=== PATIENT | female | born 1960 | race Caucasian/White ===

== ENCOUNTER 2017-04-10 19:42 | Emergency (ER) | payer OTHER ==
[~2017-04-10] VITALS: Ht 170.2 cm; Wt 109.3 kg
[~2017-04-10 19:42] MED LIST: AMOX-260 PO; OMEP1CAP19 PO; RANI300T3 PO; TRAM50TA PO; dayquil
[2017-04-10 20:37] VITALS: BP 128/85
[2017-04-10] MEDS ORDERED: TETANUS AND DIPHTHERIA TOX/PF 0.5 ML VIAL. VAX IM ONE (20:45)
[2017-04-10] MEDS ORDERED: DIPHTH,PERTUSS(ACELL),TET TOX 0.5 ML DISP.SYRIN. VAX IM ONE (21:00)
--- NOTE | 2017-04-10 21:42 | ED.ADGEN ---
Past History Past Medical History: Other Past Surgical History: Appendectomy, Cholecystectomy Smoking: Cigarettes Alcohol Use: None Drug Use: None Adult General Chief Complaint Chief Complaint Bilateral knee injury HPI HPI Patient is a 56-year-old female who presents with bilateral knee pain. Patient fell from standing and slipped on sticky floor landing on both knees. Patient has bruising, swelling tenderness to right patellar region. Reports right leg pain with weightbearing. Denies other injury. Review of Systems Review of Systems Review symptoms as per history of present illness. Current Medications Current Medications Current Medications Medications (Trade) Dose Ordered Sig/Babita Start Time Stop Time Status Last Admin Dose Admin Diphtheria/ Tetanus/Acell Pertussis (Boostrix) 0.5 ml ONCE ONCE 04/10/17 21:00 04/10/17 21:03 DC 04/10/17 21:00 0.5 ML Tetanus/ Diphtheria Toxoids Adsorbed (Tenivac Vial) 0.5 ml ONCE ONCE 04/10/17 20:45 04/10/17 20:46 Cancel Allergies Allergies Allergies Coded Allergies Type Severity Reaction Last Updated Verified morphine Allergy Unknown 04/10/17 Yes Physical Exam Physical Exam Constitutional: Well developed, well nourished, no acute distress, non-toxic appearance. HENT: Normocephalic, atraumatic, bilateral external ears normal, oropharynx moist, no oral exudates, nose normal. Extremities: Right lower extremity, prepatellar abrasion, swelling, no gross deformity, pain on range of motion. Left lower extremity, left prepatellar tenderness, no appreciable swelling bruising or deformity. Minimal pain on range of motion. Bilateral lower extremity pulses are symmetric. Neurologic: Alert and oriented X 3, normal motor function, normal sensory function, no focal deficits noted. Psychologic: Affect normal, judgement normal, mood normal. Current Patient Data Vital Signs Vital Signs Date Time Temp Pulse Resp B/P (MAP) Pulse Ox O2 Delivery O2 Flow Rate FiO2 04/10/17 19:45 97.6 74 18 98 Room Air EKG EKG [] Radiology/Procedures Radiology/Procedures [Bilateral knees with sunrise views: No obvious displaced fractures on preliminary read] Course & Med Decision Making Course & Med Decision Making Pertinent Labs and Imaging studies reviewed. (See chart for details) [Patient pain addressed. Tetanus updated. Patient placed in right knee immobilizer instructed to be limited weightbearing until PCP/work comp follow- up.] Final Impression Final Impression [1. Bilateral knee contusions 2. Right knee abrasion] Problems: Dragon Disclaimer Dragon Disclaimer This electronic medical record was generated, in whole or in part, using a voice recognition dictation system. LAURIE CORTEZ DO April 10, 2017 21:42
--- NOTE | 2017-04-11 07:52 | RAD ---
EXAM: Bilateral knees, 3 views. HISTORY: Fall. COMPARISON: 09/21/2013. FINDINGS: Frontal, lateral, oblique and sunrise views of both knees are obtained. There is no fracture, dislocation or subluxation. No joint effusion is seen. There is slight lateral lateral patellofemoral compartment joint space narrowing with minimal lateral patellar tilting. There is no subluxation. IMPRESSION: No acute osseous finding.
== END 2017-04-10 21:20 | disposition home or self-care (01) ==
LOC: ER 19:42
DX: S80.02XA Contusion of left knee, initial encounter (principal); S80.01XA Contusion of right knee, initial encounter; F17.210 Nicotine dependence, cigarettes, uncomplicated; Z88.5 Allergy status to narcotic agent; W01.0XXA Fall on same level from slipping, tripping and stumbling without subsequent striking against object, initial encounter; Y93.89 Activity, other specified; Y99.8 Other external cause status; Y92.89 Other specified places as the place of occurrence of the external cause
CPT/HCPCS: 29505; 73564; 90471; 90715; 99284-25

== ENCOUNTER → 2017-07-20 | Outpatient (CLI) | payer OTHER ==
--- NOTE | 2017-07-23 14:32 | RAD ---
DATE: 07/23/2017 EXAM: MAMMO NIESHA SCREENING BILATERAL HISTORY: Asymptomatic screening mammogram COMPARISON: Prior mammogram from 05/31/2012 This study was interpreted with the benefit of Computerized Aided Detection (CAD). The breast parenchyma shows scattered fibroglandular densities. Breast parenchyma level B. FINDINGS: Bilateral CC and MLO views were performed. Bilateral breast tomosynthesis in the CC and MLO views were performed. Right breast: No suspicious microcalcifications, masses or areas of architectural distortion. Left breast: There is a mass in the outer slightly lower quadrant of the left breast at central depth for which spot compression CC and MLO views as well as ultrasound are recommended. No suspicious microcalcifications or areas of architectural distortion. Findings are stable from the prior mammogram. IMPRESSION: 1. Incomplete left mammogram. Patient will need to be called back for additional views to include spot compression CC normal views as well as ultrasound. 2. Negative right mammogram. BI-RADS CATEGORY: 0 INCOMPLETE: NEEDS ADDITIONAL IMAGING EVALUATION AND/OR PRIOR MAMMOGRAMS FOR COMPARISON. RECOMMENDED FOLLOW-UP: ADD ADDITIONAL IMAGING PQRS compliance statement: Mammography is a sensitive method for finding small breast cancers, but it does not detect them all and is not a substitute for careful clinical examination. A negative mammogram does not negate a clinically suspicious finding and should not result in delay in biopsying a clinically suspicious abnormality. "Our facility is accredited by the [employer] Mammography [employer]."
== END | disposition home or self-care (01) ==
LOC: MAMMO 10:13
PROVIDERS: ATTEND Obstetrics & Gynecology
DX: Z12.31 Encounter for screening mammogram for malignant neoplasm of breast (principal)
CPT/HCPCS: 77063; G0202; 77067

== ENCOUNTER → 2017-08-04 | Outpatient (CLI) | payer OTHER ==
--- NOTE | 2017-08-04 11:27 | RAD ---
DATE: 08/04/2017 EXAM: DIGITAL DIAGNOSTIC LT, BREAST LEFT HISTORY: Possible abnormality seen on screening COMPARISON: Screening examination 16 days earlier FINDINGS: Breast Density: SCATTERED The breast parenchyma shows scattered fibroglandular densities. Breast parenchyma level B. Additional views obtained include rolled cc views medially and laterally as well as a coned compression MLO views and cc views as well as an ML view. On the rolled views no definite abnormality is seen. On the MLO view a nodular density is seen just below the plane of the nipple similar to the screening exam. On the coned compression views a possible small nodule, having benign features on mammography, is seen laterally in the breast. Targeted ultrasound of the left breast was performed. The examination was performed from the 3 to 6:00 position. At the 4:00 position of the breast, approximately 5 cm from the nipple, is a hypoechoic 4 mm mass having very benign features on ultrasound. It may account for the density seen on mammography. IMPRESSION: Probable benign findings. Follow-up mammography of the left breast is suggested in 6 months to further document stability BI-RADS CATEGORY: 3 PROBABLE BENIGN FINDING(S-SHORT INTERVAL FOLLOW-UP SUGGESTED RECOMMENDED FOLLOW-UP: 6M 6 MONTH FOLLOW-UP PQRS compliance statement: Patient information was entered into a reminder system with a target due date 02/11/2018 for the next mammogram. Mammography is a sensitive method for finding small breast cancers, but it does not detect them all and is not a substitute for careful clinical examination. A negative mammogram does not negate a clinically suspicious finding and should not result in delay in biopsying a clinically suspicious abnormality. "Our facility is accredited by the [employer] Mammography Program."
== END | disposition home or self-care (01) ==
LOC: MAMMO 09:45
PROVIDERS: ATTEND Internal Medicine
DX: R92.8 Other abnormal and inconclusive findings on diagnostic imaging of breast (principal)
CPT/HCPCS: 76641; G0206; 77065

== ENCOUNTER → 2018-02-15 | Outpatient (CLI) | payer OTHER ==
--- NOTE | 2018-02-15 11:31 | RAD ---
DATE: 02/15/2018 EXAM: MAMMO NIESHA KANDACEG LT, BREAST LEFT HISTORY: 6 month follow-up COMPARISON: 08/04/2017, 07/20/2017, 05/31/2012 This study was interpreted with the benefit of Computerized Aided Detection (CAD). The breast parenchyma shows scattered fibroglandular densities. Breast parenchyma level B. FINDINGS: 2-D and 3-D tomosynthesis imaging was performed in CC and MLO projections. No new or enlarging breast densities are seen. The questionable tiny opacity described on the previous studies is no longer visible. Minimal benign type calcifications are present. No suspicious microcalcifications have developed. Left breast ultrasound, 02/15/2018: A targeted ultrasound exam of the left breast was performed at the 4:00 location where a small nodule was noted on 08/04/2017. The small hypoechoic nodule currently measures 2.2 x 2.4 x 1.0 mm compared to measurements of 2.5 x 3.6 x 1.5 mm on the previous study. Its interval decrease in size suggests that this is a benign complicated cyst. No other abnormality is seen in this region. IMPRESSION: 1. There is no mammographic evidence of malignancy in the left breast. Follow-up bilateral mammography in 6 months is suggested.. 2. A targeted ultrasound exam of the left breast shows that the tiny nodule seen on the previous study has decreased in size compatible with a benign etiology. BI-RADS CATEGORY: 2 BENIGN FINDING(S) RECOMMENDED FOLLOW-UP: 6M 6 MONTH FOLLOW-UP PQRS compliance statement: Patient information was entered into a reminder system with a target due date for the next mammogram. Mammography is a sensitive method for finding small breast cancers, but it does not detect them all and is not a substitute for careful clinical examination. A negative mammogram does not negate a clinically suspicious finding and should not result in delay in biopsying a clinically suspicious abnormality. "Our facility is accredited by the [employer] Mammography Program."
== END | disposition home or self-care (01) ==
LOC: MAMMO 10:04
PROVIDERS: ATTEND Internal Medicine
DX: N63.21 Unspecified lump in the left breast, upper outer quadrant (principal); K21.9 Gastro-esophageal reflux disease without esophagitis; Z87.891 Personal history of nicotine dependence; Z90.49 Acquired absence of other specified parts of digestive tract
CPT/HCPCS: 76641; 77065; G0279; 77061

== ENCOUNTER 2018-09-20 15:55 | Emergency (ER) | payer OTHER ==
[~2018-09-20] VITALS: Ht 170.2 cm; Wt 102.1 kg
[2018-09-20 16:15] VITALS: BP 138/75
[2018-09-20] MEDS ORDERED: HYDROcodone/APAP 5/325MG 1 TAB TABLET PO ONE (16:45)
[2018-09-20] MEDS ORDERED: CYCLOBENZAPRINE 10 MG TABLET. PO ONE (16:45)
--- NOTE | 2018-09-20 17:01 | RAD ---
CT LUMBAR SPINE WO CONTRAST, CT THORACIC SPINE WO CONTRAST dated 09/20/2018 4:31 PM Indication: Pain.muscle strain. Comparison: No comparison is available. Technique: Contiguous axial imaging of the thoracic and lumbar spine performed with thin cut coronal and sagittal reconstruction. One or more of the following individualized dose reduction techniques were utilized for this examination: 1. Automated exposure control 2. Adjustment of the mA and/or kV according to patient size 3. Use of iterative reconstruction technique Findings: Sagittal alignment is anatomic. Vertebral body heights are maintained. Posterior elements are intact. No evidence of fracture. Mild endplate hypertrophic changes throughout. There is multilevel facet arthropathy with multilevel disc space narrowing. No apparent focal disc herniation. There is mild broad-based posterior bulging at L4-L5 and L5-S1. No significant central canal or foraminal compromise. There is mild emphysema. Small subpleural nodule in the right lower lobe on image 81 measures 4 mm, nonspecific. Imaged portions of the retroperitoneum unremarkable. IMPRESSION: 1. No evidence of fracture or malalignment. 2. Mild multilevel spondylosis. 3. Small noncalcified pulmonary nodule in the right lower lobe, nonspecific. 4. Mild emphysema. Electronically signed by: Carlos Swift MD (09/20/2018 4:57 PM) [facility]
[2018-09-20] MEDS ORDERED: CYCL-331 PO (17:29)
[2018-09-20] MEDS ORDERED: TRAM-48 PO (17:29)
[2018-09-20] MEDS ORDERED: IBUP800T19 PO (17:29)
--- NOTE | 2018-09-20 17:30 | PHYS DOC ---
Past History Past Medical History: Cancer Past Surgical History: Cancer Surgery Smoking: Cigarettes Alcohol Use: None Drug Use: None Adult General Chief Complaint Chief Complaint: BACK PAIN OR INJURY HPI HPI Patient is a 57 year old female who presents with complaining of mid back pain for the last 3 days as a constant pain with no radiation. Patient denies focal neuro deficit, urine and bowel incontinence, fever and chills, history of injury. Patient states she took [id number] medication without improvement of her pain. Patient stated she had history of cervical cancer more than 10 years ago and had stressful condition going on recently. Review of Systems Review of Systems Constitutional: Denies fever or chills [] Eyes: Denies change in visual acuity, redness, or eye pain [] HENT: Denies nasal congestion or sore throat [] Respiratory: Denies cough or shortness of breath [] Cardiovascular: No additional information not addressed in HPI [] GI: Denies abdominal pain, nausea, vomiting, bloody stools or diarrhea [] : Denies dysuria or hematuria [] Musculoskeletal: Reports back pain Integument: Denies rash or skin lesions [] Neurologic: Denies headache, focal weakness or sensory changes [] Endocrine: Denies polyuria or polydipsia [] All other systems were reviewed and found to be within normal limits, except as documented in this note. Current Medications Current Medications Current Medications Medications (Trade) Dose Ordered Sig/Babita Start Time Stop Time Status Last Admin Dose Admin Acetaminophen/ Hydrocodone Bitart (Lortab 5/325) 1 tab 1X ONCE 09/20/18 16:45 09/20/18 16:46 DC 09/20/18 16:38 1 TAB Cyclobenzaprine HCl (Flexeril) 10 mg 1X ONCE 09/20/18 16:45 09/20/18 16:46 DC 09/20/18 16:38 10 MG Allergies Allergies Allergies Coded Allergies Type Severity Reaction Last Updated Verified morphine Allergy Unknown 04/10/17 Yes Physical Exam Physical Exam Constitutional: Well developed, well nourished, mild distress, non-toxic appearance. [] HENT: Normocephalic, atraumatic Eyes: PERRLA, EOMI, conjunctiva normal, no discharge. [] Neck: Normal range of motion, no tenderness, supple, no stridor. [] Cardiovascular:Heart rate regular rhythm, no murmur [] Lungs & Thorax: Bilateral breath sounds clear to auscultation [] Abdomen: Bowel sounds normal, soft, no tenderness, no masses, no pulsatile masses. [] Skin: Warm, dry, no erythema, no rash. [] Back: No midline tenderness, no deformities, painful range of motion, no CVA tenderness. [] Extremities: No tenderness, no cyanosis, no clubbing, ROM intact, no edema. [] Neurologic: Alert and oriented X 3, normal motor function, normal sensory function, no focal deficits noted. [] Psychologic: Affect anxious, judgement normal, mood normal. [] Current Patient Data Vital Signs Vital Signs Date Time Temp Pulse Resp B/P (MAP) Pulse Ox O2 Delivery O2 Flow Rate FiO2 09/20/18 16:38 18 09/20/18 16:15 98.7 84 95 Room Air EKG EKG [] Radiology/Procedures Radiology/Procedures [][address] [address] IMAGING REPORT Signed PATIENT: NEGRO KEY ACCOUNT: [id number] : 1960 LOCATION: ER AGE: 57 SEX: F EXAM STATUS: REG ER ORD. PHYSICIAN: NICHOLE JONES MD REASON: pain PROCEDURE: CT LUMBAR SPINE WO CONTRAST CT LUMBAR SPINE WO CONTRAST, CT THORACIC SPINE WO CONTRAST dated 09/20/2018 4:31 PM Indication: Pain.muscle strain. Comparison: No comparison is available. Technique: Contiguous axial imaging of the thoracic and lumbar spine performed with thin cut coronal and sagittal reconstruction. One or more of the following individualized dose reduction techniques were utilized for this examination: 1. Automated exposure control 2. Adjustment of the mA and/or kV according to patient size 3. Use of iterative reconstruction technique Findings: Sagittal alignment is anatomic. Vertebral body heights are maintained. Posterior elements are intact. No evidence of fracture. Mild endplate hypertrophic changes throughout. There is multilevel facet arthropathy with multilevel disc space narrowing. No apparent focal disc herniation. There is mild broad-based posterior bulging at L4-L5 and L5-S1. No significant central canal or foraminal compromise. There is mild emphysema. Small subpleural nodule in the right lower lobe on image 81 measures 4 mm, nonspecific. Imaged portions of the retroperitoneum unremarkable. IMPRESSION: 1. No evidence of fracture or malalignment. 2. Mild multilevel spondylosis. 3. Small noncalcified pulmonary nodule in the right lower lobe, nonspecific. 4. Mild emphysema. Electronically signed by: Carlos Swift MD (09/20/2018 4:57 PM) [facility] [place] [id number] IMAGING REPORT Signed PATIENT: NEGRO KEY ACCOUNT: [id number] : 1960 LOCATION: ER AGE: 57 SEX: F EXAM STATUS: REG ER ORD. PHYSICIAN: NICHOLE JONES MD REASON: pain PROCEDURE: CT THORACIC SPINE WO CONTRAST CT LUMBAR SPINE WO CONTRAST, CT THORACIC SPINE WO CONTRAST dated 09/20/2018 4:31 PM Indication: Pain.muscle strain. Comparison: No comparison is available. Technique: Contiguous axial imaging of the thoracic and lumbar spine performed with thin cut coronal and sagittal reconstruction. One or more of the following individualized dose reduction techniques were utilized for this examination: 1. Automated exposure control 2. Adjustment of the mA and/or kV according to patient size 3. Use of iterative reconstruction technique Findings: Sagittal alignment is anatomic. Vertebral body heights are maintained. Posterior elements are intact. No evidence of fracture. Mild endplate hypertrophic changes throughout. There is multilevel facet arthropathy with multilevel disc space narrowing. No apparent focal disc herniation. There is mild broad-based posterior bulging at L4-L5 and L5-S1. No significant central canal or foraminal compromise. There is mild emphysema. Small subpleural nodule in the right lower lobe on image 81 measures 4 mm, nonspecific. Imaged portions of the retroperitoneum unremarkable. IMPRESSION: 1. No evidence of fracture or malalignment. 2. Mild multilevel spondylosis. 3. Small noncalcified pulmonary nodule in the right lower lobe, nonspecific. 4. Mild emphysema. Electronically signed by: Carlos Swift MD (09/20/2018 4:57 PM) [facility] DICTATED AND SIGNED BY: CARLOS SWIFT MD DATE: 09/20/18 4649 CC: NICHOLE JONES MD; PULS,MED L ~ Course & Med Decision Making Course & Med Decision Making Pertinent Imaging studies reviewed. (See chart for details) discharge: I've spoken with the patient and/or caregivers. I've explained the patient's condition, diagnosis and treatment plan based on information available to me at this time. I've answered the patient's and/or caregivers questions and addressed any concerns. The patient and/or caregivers have a good understanding the patient's diagnosis, condition and treatment plan as can be expected at this point. Vital signs have been stabilized. The patient's condition is stable for discharge from the emergency department. The patient will pursue further outpatient evaluation with her primary care provider or other designated consulting physician as outlined in the discharge instructions. Patient and/or caregivers are agreeable to this plan of care and follow-up instructions have been explained in detail. The patient and/or caregivers have received these instructions in written format and expressed understanding of these discharge instructions. The patient and her caregivers are aware that if any significant change in condition or worsening of symptoms should prompt him to immediately return to this of the closest emergency department. If an emergent department is not readily available I would encourage him to call 911. [place] Disclaimer Dragon Disclaimer This electronic medical record was generated, in whole or in part, using a voice recognition dictation system. Departure Departure: Impression: Primary Impression: Acute thoracic myofascial strain Disposition: 01 HOME, SELF-CARE (at 1727) Condition: IMPROVED Referrals: [facility] (PCP) Patient Instructions: Thoracic Strain Additional Instructions: Apply ice on your back Follow-up with your primary care physician in 3-5 days Return to ER if not getting better Scripts Tramadol Hcl (ULTRAM) 50 Mg Tablet 50 MG PO PRN Q6HRS PRN for PAIN, #20 TAB Prov: NICHOLE JONES MD 09/20/18 Ibuprofen (IBUPROFEN) 800 Mg Tablet 1 TAB PO TID for pain, #30 TAB Prov: NICHOLE JONES MD 09/20/18 Cyclobenzaprine Hcl (CYCLOBENZAPRINE HCL) 10 Mg Tablet 1 TAB PO TID for pain, #30 TAB Prov: NICHOLE JONES MD 09/20/18 NICHOLE JONES MD Sep 20, 2018 17:30
--- NOTE | 2018-09-20 17:30 | PHYS DOC ---
Past History Past Medical History: Cancer Past Surgical History: Cancer Surgery Smoking: Cigarettes Alcohol Use: None Drug Use: None Adult General Chief Complaint Chief Complaint: BACK PAIN OR INJURY HPI HPI Patient is a [age] year old [sex] who presents with [] Review of Systems Review of Systems Constitutional: Denies fever or chills [] Eyes: Denies change in visual acuity, redness, or eye pain [] HENT: Denies nasal congestion or sore throat [] Respiratory: Denies cough or shortness of breath [] Cardiovascular: No additional information not addressed in HPI [] GI: Denies abdominal pain, nausea, vomiting, bloody stools or diarrhea [] : Denies dysuria or hematuria [] Musculoskeletal: Denies back pain or joint pain [] Integument: Denies rash or skin lesions [] Neurologic: Denies headache, focal weakness or sensory changes [] Endocrine: Denies polyuria or polydipsia [] All other systems were reviewed and found to be within normal limits, except as documented in this note. Current Medications Current Medications Current Medications Medications (Trade) Dose Ordered Sig/Babita Start Time Stop Time Status Last Admin Dose Admin Acetaminophen/ Hydrocodone Bitart (Lortab 5/325) 1 tab 1X ONCE 09/20/18 16:45 09/20/18 16:46 DC 09/20/18 16:38 1 TAB Cyclobenzaprine HCl (Flexeril) 10 mg 1X ONCE 09/20/18 16:45 09/20/18 16:46 DC 09/20/18 16:38 10 MG Allergies Allergies Allergies Coded Allergies Type Severity Reaction Last Updated Verified morphine Allergy Unknown 04/10/17 Yes Physical Exam Physical Exam Constitutional: Well developed, well nourished, no acute distress, non-toxic appearance. [] HENT: Normocephalic, atraumatic, bilateral external ears normal, oropharynx moist, no oral exudates, nose normal. [] Eyes: PERRLA, EOMI, conjunctiva normal, no discharge. [] Neck: Normal range of motion, no tenderness, supple, no stridor. [] Cardiovascular:Heart rate regular rhythm, no murmur [] Lungs & Thorax: Bilateral breath sounds clear to auscultation [] Abdomen: Bowel sounds normal, soft, no tenderness, no masses, no pulsatile masses. [] Skin: Warm, dry, no erythema, no rash. [] Back: No tenderness, no CVA tenderness. [] Extremities: No tenderness, no cyanosis, no clubbing, ROM intact, no edema. [] Neurologic: Alert and oriented X 3, normal motor function, normal sensory function, no focal deficits noted. [] Psychologic: Affect normal, judgement normal, mood normal. [] Current Patient Data Vital Signs Vital Signs Date Time Temp Pulse Resp B/P (MAP) Pulse Ox O2 Delivery O2 Flow Rate FiO2 09/20/18 16:38 18 09/20/18 16:15 98.7 84 95 Room Air EKG EKG [] Radiology/Procedures Radiology/[place] [address] IMAGING REPORT Signed PATIENT: NEGRO KEY ACCOUNT: [id number] : 1960 LOCATION: ER AGE: 57 SEX: F EXAM STATUS: REG ER ORD. PHYSICIAN: NICHOLE JONES MD REASON: pain PROCEDURE: CT LUMBAR SPINE WO CONTRAST CT LUMBAR SPINE WO CONTRAST, CT THORACIC SPINE WO CONTRAST dated 09/20/2018 4:31 PM Indication: Pain.muscle strain. Comparison: No comparison is available. Technique: Contiguous axial imaging of the thoracic and lumbar spine performed with thin cut coronal and sagittal reconstruction. One or more of the following individualized dose reduction techniques were utilized for this examination: 1. Automated exposure control 2. Adjustment of the mA and/or kV according to patient size 3. Use of iterative reconstruction technique Findings: Sagittal alignment is anatomic. Vertebral body heights are maintained. Posterior elements are intact. No evidence of fracture. Mild endplate hypertrophic changes throughout. There is multilevel facet arthropathy with multilevel disc space narrowing. No apparent focal disc herniation. There is mild broad-based posterior bulging at L4-L5 and L5-S1. No significant central canal or foraminal compromise. There is mild emphysema. Small subpleural nodule in the right lower lobe on image 81 measures 4 mm, nonspecific. Imaged portions of the retroperitoneum unremarkable. IMPRESSION: 1. No evidence of fracture or malalignment. 2. Mild multilevel spondylosis. 3. Small noncalcified pulmonary nodule in the right lower lobe, nonspecific. 4. Mild emphysema. Electronically signed by: Carlos Swift MD (09/20/2018 4:57 PM) [facility] DICTATED AND SIGNED BY: CARLOS SWIFT MD DATE: 09/20/18 2572 CC: NICHOLE JONES MD; [facility] ~ Course & Med Decision Making Course & Med Decision Making Pertinent Labs and Imaging studies reviewed. (See chart for details) [] Dragon Disclaimer Dragon Disclaimer This electronic medical record was generated, in whole or in part, using a voice recognition dictation system. Departure Departure: Referrals: [facility] (PCP) NICHOLE JONES MD Sep 20, 2018 17:30
== END 2018-09-20 17:41 | disposition home or self-care (01) ==
LOC: ER 15:55
DX: S29.012A Strain of muscle and tendon of back wall of thorax, initial encounter (principal); F17.210 Nicotine dependence, cigarettes, uncomplicated; M47.9 Spondylosis, unspecified; M47.897 Other spondylosis, lumbosacral region; J43.9 Emphysema, unspecified; R91.1 Solitary pulmonary nodule; Z88.5 Allergy status to narcotic agent; X58.XXXA Exposure to other specified factors, initial encounter; Y93.89 Activity, other specified; Y92.89 Other specified places as the place of occurrence of the external cause; Y99.8 Other external cause status
CPT/HCPCS: 72128; 72131; 99284-25